=== PATIENT | female | born 1965 | race Caucasian/White ===

== ENCOUNTER 2020-06-14 10:01 | Outpatient (CLI) | payer OTHER ==
--- NOTE | 2020-06-14 10:40 | ULT ---
GALLBLADDER ULTRASOUND: HISTORY:Elevated LFTs. FINDINGS: The liver demonstrates homogeneously increased echotexture without focal mass or intrahepatic biliary ductal dilatation. No gallstones, gallbladder wall thickening or pericholecystic fluid are seen. The right kidney is normal. The pancreas is not satisfactorily visualized due to overlying bowel gas. The common duct [id number] in diameter. No free fluid is seen in the James's pouch. IMPRESSION: 1. Fatty liver 2. No evidence of cholelithiasis
== END 2020-06-14 10:02 | disposition home or self-care (01) ==
LOC: BICULT 10:01
PROVIDERS: ATTEND Internal Medicine Hematology & Oncology
DX: K76.0 Fatty (change of) liver, not elsewhere classified (principal); R79.89 Other specified abnormal findings of blood chemistry
CPT/HCPCS: 76705